=== PATIENT | male | born 1965 | race Caucasian/White ===

== ENCOUNTER 2017-05-18 18:45 | Inpatient (IN) | payer MEDICARE, OTHER ==
[~2017-05-18] VITALS: Ht 172.7 cm; Wt 83.9 kg
[~2017-05-18 18:45] MED LIST: BLOO-367 IN; CALC-343 PO; CLOZ100T32 PO; DIVA500T2 PO; DOCU-170 PO; GLIP5TAB13 PO; INSU100V26 IJ; LISI5TAB45 PO; LORA1TAB82 PO; MELA5TAB PO
--- NOTE | 2017-05-18 18:50 | NUR ---
BB PA FROM SNF STRIKING OUT STAFF AGGRESIVE BEHAVIOR X1 DAY DIRECTOR OF CLAIMS REQUESTING PSYCH EVAL, NAD NOTED, VSS, PT PUT ON HOSPITAL GOWN AND MONITOR, WAITING FOR MD SHRUTHI
[2017-05-18 20:14] LABS: BASOPHILS % (AUTO) 0.4 % (0.0-2.0); EOSINOPHILS # (AUTO) 0.1 /CMM (0.0-0.7); EOSINOPHILS % (AUTO) 0.7 % (0.0-6.0); HEMATOCRIT 37 % (39-51); HEMOGLOBIN 12.9 g/dL (13.5-17.5); LYMPHOCYTES # (AUTO) 1.7 /CMM (0.8-4.8); LYMPHOCYTES % (AUTO) 13.5 % (20.0-44.0); MEAN CORPUSCULAR HEMOGLOBIN 32 PG (26.0-33.0); MEAN CORPUSCULAR HGB CONC 35 g/dl (31.0-36.0); MEAN CORPUSCULAR VOLUME 93 fL (80-96); MONOCYTES # (AUTO) 1.5 /CMM (0.1-1.30); MONOCYTES % (AUTO) 12.2 % (2.0-12.0); NEUTROPHILS # (AUTO) 9.1 /CMM (1.8-8.9); NEUTROPHILS % (AUTO) 73.2 % (43.0-81.0); PLATELET COUNT (AUTO) 194 /CMM (150-450); RDW COEFFICIENT OF VARIATION 13.4 (11.5-15.0); RED BLOOD CELL COUNT(AUTO) 3.98 MIL/uL (4.5-6.0); WHITE BLOOD COUNT (AUTO) 12.4 K/uL (4.3-11.0)
[2017-05-18 20:24] LABS: CALCIUM, SERUM 8.9 mg/dL (8.5-10.1); CARBON DIOXIDE 27 mmol/L (21-32); CHLORIDE 97 mmol/L (98-107); CREATININE 0.7 mg/dL (0.6-1.3); GLUCOSE 102 mg/dL (74-106); POTASSIUM 3.9 mmol/L (3.5-5.1); SODIUM SERUM 131 mmol/L (136-145); UREA NITROGEN, BLOOD 10 mg/dL (7-18)
[2017-05-18 20:29] LABS: ALANINE AMINOTRANSFERASE 22 U/L (12-78); ALBUMIN 3.8 g/dL (3.4-5.0); ALCOHOL, BLOOD < 3 mg/dL (0-0); ALKALINE PHOSPHATASE 57 U/L (46-116); ASPARTATE AMINOTRANSFERASE 19 U/L (15-37); BILIRUBIN,DIRECT 0.1 mg/dL (0.0-0.2); BILIRUBIN,TOTAL 0.4 mg/dL (0.2-1.0); TOTAL PROTEIN, SERUM 6.8 g/dL (6.4-8.2)
[2017-05-18 20:36] LABS: SALICYLATE 0.7 mg/dL (2.8-20.0)
[2017-05-18 20:37] LABS: ACETAMINOPHEN 0 ug/ml (10-30)
--- NOTE | 2017-05-18 22:05 | NUR ---
CALLED ART FOR PSYCH EVAL
--- NOTE | 2017-05-18 22:08 | NUR ---
URINE SENT TO LAB
--- NOTE | 2017-05-18 22:09 | NUR ---
Patient is resting comfortably in bed with eyes closed. Easily aroused. VSS
[2017-05-18 23:13] LABS: APPEARANCE,URINE CLEAR (CLEAR); BILIRUBIN,URINE NEGATIVE (NEGATIVE); BLOOD, URINE NEGATIVE Ery/uL (NEGATIVE); COLOR,URINE YELLOW (YELLOW); KETONES,URINE NEGATIVE (NEGATIVE); LEUKOCYTE ESTERASE ,URINE NEGATIVE (NEGATIVE); NITRITE, URINE NEGATIVE (NEGATIVE); PROTEIN,URINE NEGATIVE (NEGATIVE); UGLUCOSE NEGATIVE (NEGATIVE)
--- NOTE | 2017-05-18 23:20 | NUR ---
Patient is resting comfortably in bed with eyes closed. Easily aroused. VSS
--- NOTE | 2017-05-18 23:23 | NUR ---
ART AT BS
--- NOTE | 2017-05-19 01:08 | NUR ---
REPORT GIVEN TO MAXINE WILKS FOR CONTINUATION OF CARE.
--- NOTE | 2017-05-19 01:20 | NUR ---
PT TRANSFERED TO [facility] VIA WHEELCHAIR,
[2017-05-19] MEDS ORDERED: ATEN50TA PO (01:36)
[2017-05-19] MEDS ORDERED: LACT10SO PO (01:36)
[2017-05-19] MEDS ORDERED: TRAZ-147 PO (01:36)
[2017-05-19] MEDS ORDERED: FOLI1TAB16 PO (01:36)
[2017-05-19] MEDS ORDERED: TRAZ-144 PO (01:36)
[2017-05-19] MEDS ORDERED: QUET300T2 PO (01:36)
[2017-05-19] MEDS ORDERED: ATOR10TA PO (01:36)
[2017-05-19] MEDS ORDERED: BENA20TA2 PO (01:36)
[2017-05-19] MEDS ORDERED: DIVA500T2 PO (01:36)
[2017-05-19 01:45] VITALS: BP 130/75
--- NOTE | 2017-05-19 01:45 | NUR ---
GPS EQUIPMENT ASSOCIATE NOTES ADMITTED THIS 51 YEAR OLD MALE ON 5150 HOLD FOR GRAVE DISABILITY. PER HOLD, PATIENT WAS AGGRESSIVE AND WAS STRIKING OUT AT STAFF AT THE CARE HOME WHERE HE CAME FROM. UPON FACE TO FACE PATIENT WAS IRRITABLE, YELLING AND BANGING ON THE BED WHEN ASSISTED WITH CARES. VITAL SIGNS CHECKED AND RECORDED. AFEBRILE. ASSESSMENT OF BODY SYSTEMS COMPLETED. SKIN AND BODY CHECK DONE. A BUMP WAS NOTED ON PATIENTS BACK WHICH HAD A SCAB AND A BLISTER AND WAS REDDENED. WOUND CONSULT REQUESTED. SCRATCHES WERE ALSO NOTED ON BILATERAL LOWER EXTREMITIES. PATIENT AMBULATES WITH ASSIST. PATIENTS BELONGINGS CHECKED FOR CONTRABAND ITEMS. NONE FOUND WITH PATIENT. PATIENT ADMITTED UNDER THE CARE OF DR. PRICE FOR PSYCH AND DR. FOREST MARTINEZ FOR MEDICAL. WILL ENDORSE TO DAY SHIFT. WILL MONITOR PATIENT Q 15 MINS FOR SAFETY AND BEHAVIORS.
[2017-05-19] MEDS ORDERED: ACETAMINOPHEN 325 MG TABLET PO PRN (02:00)
[2017-05-19] MEDS ORDERED: MAG HYDROX/AL HYDROX/SIMETH 30 ML UDC PO PRN (02:00)
[2017-05-19] MEDS ORDERED: MAGNESIUM HYDROXIDE 30 ML UDC PO PRN (02:00)
[2017-05-19 08:14] VITALS: BP 127/75
--- NOTE | 2017-05-19 09:19 | NUR ---
[id number]: NOTIFIED DR. WHITLOCK ABOUT PT LAB RESULTS ON : WBC= 12.4, RBC= 3.98, HGB= 12.9, HCT=37, LYMPH %= 13.5, MONO%= 12.2, NEUT #= 9.1, MONO#= 1.5, BG=284, CHLORIDE= 97, UR SPECIIFC GRAVITY= <1.005, URINE UROBILINOGEN= 1.0. REMINDED DR. WHITLOCK ABOUT MEDICATION RECONCILIATION
[2017-05-19] MEDS ORDERED: LACTULOSE 10 G/15 ML UDC (PYXIS) PO PRN (09:30)
[2017-05-19] MEDS: ATENOLOL 50 MG TABLET PO SCH (09:35)
[2017-05-19] MEDS: DIVALPROEX SODIUM 500 MG TABLET.DR PO SCH ×2 (11:03→16:45)
[2017-05-19] MEDS: BENAZEPRIL HCL 5 MG TABLET PO SCH (11:03)
[2017-05-19] MEDS: FOLIC ACID 1 MG TABLET PO SCH (11:05)
--- NOTE | 2017-05-19 11:50 | NUR ---
GPS/RN PT IS AGITATED, SPITS ON THE STUFF MEMBERS, HITS FURNITURE REPEATEDLY. TRIED THE ALTERNATIVE MEASURES BUT PT REMAINS NOT REDIRECTABLE. DR REBOLLEDO ASSESSED THE PT AND ORDERED ZYPREXA 10MG IM ONCE
[2017-05-19] MEDS ORDERED: OLANZAPINE 10 MG VIAL IM ONE (12:00)
--- NOTE | 2017-05-19 13:03 | NUR ---
GPS/RN DR REBOLLEDO ORDERED SITTER 1:1 FOR SAFETY( PT AGITATED, HITTING THE SIDE RAILS, FURNITURE, SCREAMS, NOT REDIRECTABLE)
--- NOTE | 2017-05-19 13:15 | NUR ---
[id number]: GAVE ATIVAN 1 MG PO DUE TO INCREASED ANXIETY UPON PT REQUEST AND WILL CONTINUE TO MONITOR FOR EFFECTIVENESS OF MEDICATION
[2017-05-19] MEDS ORDERED: LORAZEPAM 1 MG TABLET PO PRN (13:30)
[2017-05-19] MEDS: LORAZEPAM 1 MG TABLET PO ONE (13:30)
[2017-05-19] MEDS ORDERED: ZIPRASIDONE MESYLATE 20 MG/VIAL VIAL IM ONE (14:00)
--- NOTE | 2017-05-19 14:02 | NUR ---
GPS/RN PT IS AGITATED, SCREAMS, TRIED TO HIT STUFF MEMBERS, BANGS ON THE WALL, FURNITURE. GEODON 10MG IM ORDERED BY DR REBOLLEDO.
[2017-05-19 16:00] VITALS: BP_SYST 131; BP_SYST 137; BP_DIAS 67; BP_DIAS 84
--- NOTE | 2017-05-19 16:42 | NUR ---
[id number]: DUPLICATE ORDER OF ATIVAN 1 MG PO ONCE, NOT ADMINISTER
[2017-05-19] MEDS: ATORVASTATIN 10 MG TABLET PO SCH (21:22)
[2017-05-19] MEDS: OLANZAPINE 5 MG/TAB.RAPDIS PO SCH (21:23)
--- NOTE | 2017-05-20 01:38 | NUR ---
GPS RN: PATIENT IN BED, ASLEEP, QUIET THIS TIME OF ROUNDS. 1:1 SITTER IN CLOSE PROXIMITY. WILL CONTINUE TO MONITOR PATIENT FOR MOOD, SAFETY AND BEHAVIOR.
[2017-05-20] MEDS: LORAZEPAM 0.5 MG TABLET PO PRN ×2 (05:19→16:51)
--- NOTE | 2017-05-20 05:40 | NUR ---
GPS RN: PATIENT IN THE ROOM, AWAKE, STARTING TO SCREAM AND YELL AT THIS TIME. ATIVAN 0.5 MG GIVEN ORALLY A PRN ORDER AT 0519 AM. 1:1 SITTER IN CLOSE PROXIMITY FOR PATIENT'S SAFETY. WILL CONTINUE TO MONITOR FOR PATIENT'S SAFETY AND MOOD.
[2017-05-20] MEDS: OLANZAPINE 5 MG/TAB.RAPDIS PO SCH ×2 (08:06→21:16)
[2017-05-20] MEDS: DIVALPROEX SODIUM 500 MG TABLET.DR PO SCH ×2 (08:06→16:51)
[2017-05-20] MEDS: BENAZEPRIL HCL 5 MG TABLET PO SCH (08:07)
[2017-05-20] MEDS: FOLIC ACID 1 MG TABLET PO SCH (08:07)
[2017-05-20] MEDS: ATENOLOL 50 MG TABLET PO SCH (08:07)
[2017-05-20 08:13] VITALS: BP 111/63
[2017-05-20 10:44] LABS: BASOPHILS % (AUTO) 0.2 % (0.0-2.0); EOSINOPHILS % (AUTO) 0.4 % (0.0-6.0); HEMATOCRIT 45 % (39-51); HEMOGLOBIN 14.9 g/dL (13.5-17.5); LYMPHOCYTES # (AUTO) 1.6 /CMM (0.8-4.8); MEAN CORPUSCULAR HEMOGLOBIN 31 PG (26.0-33.0); MEAN CORPUSCULAR HGB CONC 33 g/dl (31.0-36.0); MEAN CORPUSCULAR VOLUME 95 fL (80-96); MONOCYTES # (AUTO) 1.1 /CMM (0.1-1.30); MONOCYTES % (AUTO) 10.8 % (2.0-12.0); NEUTROPHILS # (AUTO) 7.7 /CMM (1.8-8.9); NEUTROPHILS % (AUTO) 73.6 % (43.0-81.0); PLATELET COUNT (AUTO) 267 /CMM (150-450); RDW COEFFICIENT OF VARIATION 14.6 (11.5-15.0); RED BLOOD CELL COUNT(AUTO) 4.75 MIL/uL (4.5-6.0); WHITE BLOOD COUNT (AUTO) 10.4 K/uL (4.3-11.0)
[2017-05-20 10:52] LABS: CHOLESTEROL 105 mg/dL (<200); HDL CHOLESTEROL 40 mg/dL (40-60); LDL 47 mg/dL (0-99); TRIGLYCERIDES 156 mg/dL (30-150)
[2017-05-20 10:54] LABS: BILIRUBIN,TOTAL 0.4 mg/dL (0.2-1.0); CALCIUM, SERUM 9.7 mg/dL (8.5-10.1); CREATININE 0.9 mg/dL (0.6-1.3); POTASSIUM 4.4 mmol/L (3.5-5.1); TOTAL PROTEIN, SERUM 7.8 g/dL (6.4-8.2)
[2017-05-20 15:49] VITALS: BP 152/77
[2017-05-20] MEDS ORDERED: LORAZEPAM 1 MG TABLET PO STA (18:07)
[2017-05-20 20:00] VITALS: BP 115/61
[2017-05-20] MEDS: ATORVASTATIN 10 MG TABLET PO SCH (21:16)
[2017-05-21] MEDS: FOLIC ACID 1 MG TABLET PO SCH (09:30)
[2017-05-21] MEDS: LORAZEPAM 0.5 MG TABLET PO PRN (09:31)
[2017-05-21] MEDS: OLANZAPINE 5 MG/TAB.RAPDIS PO SCH ×2 (09:31→21:26)
--- NOTE | 2017-05-21 09:31 | NUR ---
RN NOTE :MEDICATED WITH ATIVAN 1MG FOR ANXIETY .
[2017-05-21] MEDS: DIVALPROEX SODIUM 500 MG TABLET.DR PO SCH ×2 (09:32→17:28)
[2017-05-21] MEDS: ATENOLOL 50 MG TABLET PO SCH (09:37)
[2017-05-21] MEDS: BENAZEPRIL HCL 5 MG TABLET PO SCH (09:40)
--- NOTE | 2017-05-21 11:50 | NUR ---
WOUND CARE CONSULT: PT PRESENTS WITH DRY ABRASION/SCAB TO BACK, PRESENT ON ADMISSION. CURRENT SHARRON SCORE IS 17. ALL SKIN PROTECTION MEASURES IN PLACE AND DISCUSSED WITH NURSING STAFF. WILL SEE PRN. WANG IN AGREEMENT WITH PLAN OF CARE. Addendum: 05/21/17 at 1151 by KEL FRANCIS WNDNU Amended: Links added.
[2017-05-21] MEDS ORDERED: Z GUARD REMEDY 2 OZ OINT TP PRN (12:00)
[2017-05-21] MEDS: Z GUARD REMEDY 2 OZ OINT TP SCH (12:00)
[2017-05-21] MEDS ORDERED: OLANZAPINE 5 MG/TAB.RAPDIS PO PRN (12:00)
[2017-05-21 15:36] VITALS: BP 108/56
--- NOTE | 2017-05-21 16:20 | NUR ---
Initial Discharge Plan: Pt resides at [facility], [address] [facility], [address]; and fax # . SW contacted facility at 4:13 pm on 05/21/17 with no answer. Unable to leave message. SW will follow up. SW will help form a safe and proper discharge.
[2017-05-21 20:34] VITALS: BP 113/61
[2017-05-21] MEDS: ATORVASTATIN 10 MG TABLET PO SCH (21:25)
[2017-05-22 06:41] LABS: BASOPHILS % (AUTO) 0.4 % (0.0-2.0); EOSINOPHILS # (AUTO) 0.3 /CMM (0.0-0.7); EOSINOPHILS % (AUTO) 2.9 % (0.0-6.0); HEMATOCRIT 42 % (39-51); HEMOGLOBIN 13.9 g/dL (13.5-17.5); LYMPHOCYTES # (AUTO) 2.7 /CMM (0.8-4.8); MEAN CORPUSCULAR HEMOGLOBIN 32 PG (26.0-33.0); MEAN CORPUSCULAR HGB CONC 34 g/dl (31.0-36.0); MEAN CORPUSCULAR VOLUME 95 fL (80-96); MONOCYTES # (AUTO) 1.3 /CMM (0.1-1.30); MONOCYTES % (AUTO) 12.1 % (2.0-12.0); NEUTROPHILS # (AUTO) 6.8 /CMM (1.8-8.9); NEUTROPHILS % (AUTO) 60.6 % (43.0-81.0); PLATELET COUNT (AUTO) 216 /CMM (150-450); RDW COEFFICIENT OF VARIATION 14.1 (11.5-15.0); RED BLOOD CELL COUNT(AUTO) 4.36 MIL/uL (4.5-6.0); WHITE BLOOD COUNT (AUTO) 11.1 K/uL (4.3-11.0)
[2017-05-22 07:07] LABS: ALBUMIN 3.4 g/dL (3.4-5.0); BILIRUBIN,TOTAL 0.4 mg/dL (0.2-1.0); CREATININE 0.8 mg/dL (0.6-1.3); POTASSIUM 4.1 mmol/L (3.5-5.1)
[2017-05-22 08:00] VITALS: BP 118/65
[2017-05-22] MEDS: ATENOLOL 50 MG TABLET PO SCH (08:52)
[2017-05-22] MEDS: BENAZEPRIL HCL 5 MG TABLET PO SCH (08:52)
[2017-05-22] MEDS: FOLIC ACID 1 MG TABLET PO SCH (08:52)
[2017-05-22] MEDS: OLANZAPINE 5 MG/TAB.RAPDIS PO SCH ×2 (08:52→21:37)
[2017-05-22] MEDS: LORAZEPAM 0.5 MG TABLET PO PRN (08:53)
--- NOTE | 2017-05-22 08:53 | NUR ---
RN NOTE :MEDICATED WITH ATIVAN 1MG FOR ANXIETY .
[2017-05-22] MEDS: DIVALPROEX SODIUM 500 MG TABLET.DR PO SCH ×2 (08:59→17:37)
[2017-05-22] MEDS: Z GUARD REMEDY 2 OZ OINT TP SCH (09:19)
[2017-05-22 16:32] VITALS: BP 143/87
--- NOTE | 2017-05-22 19:30 | NUR ---
GPS RN NOTE, RECEIVED PATIENT AWAKE AND IN BED NO S/S OR COMPLAINTS OF PAIN AT THIS TIME. PATIENT IS DISPLAYING NO S/S OF APPARENT DISTRESS AT THIS TIME. PATIENT BREATHING IS UNLABORED WITH EQUAL RISE AND FALL OF THE CHEST. PATIENT HAS A ONE TO ONE SITTER FOR SAFETY. PATIENT IS ALERT AND ORIENTED X2-3 ON ROOM AIR WITH A SPOO2 96 %. PATIENT IS MED COMPLIANT, UNPREDICTABLE AT TIMES, ANXIOUS AT TIMES, AGGRESSIVE AT TIMES, DISORGANIZED, AND NEEDS REORIENTATION. PATIENT DENIES SUICIDE IDEATIONS AND HOMICIDAL IDEATIONS AT THIS TIME. PATIENT ASSISTED WITH TURNING AND REPOSITIONING Q2HR AND PRN FOR COMFORT AND CIRCULATION. PATIENT HAS NO NEEDS AT THIS TIME. PATIENT EDUCATED ON THE USE OF THE CALL TEJADA. PATIENT BED SIDE RAILS UP X 2 FOR SAFETY. PATIENT BED IS LOCKED AND LOW WILL CONTINUE TO MONITOR AND MAINTAIN SAFETY Q15 MIN WITH THE HELP OF STAFF.
[2017-05-22 20:15] VITALS: BP 132/79
[2017-05-22] MEDS: TEMAZEPAM 7.5 MG CAPSULE PO PRN (21:37)
[2017-05-22] MEDS: ATORVASTATIN 10 MG TABLET PO SCH (21:37)
--- NOTE | 2017-05-22 21:37 | NUR ---
GPS RN NOTE, PATIENT HAS A COMPLAINT OF NOT BEING ABLE TO SLEEP AND IS REQUESTING RESTORIL AT THIS TIME. PATIENT VITAL SIGNS ARE STABLE. GAVE RESTORIL 7.5MG PO HS ORDERED. WILL REASSESS FOR INSOMNIA AND I WILL CONTINUE TO MONITOR THIS PATIENT WITH THE HELP OF STAFF.
[2017-05-23] MEDS: DIVALPROEX SODIUM 500 MG TABLET.DR PO SCH ×2 (08:18→16:19)
[2017-05-23] MEDS: FOLIC ACID 1 MG TABLET PO SCH (08:18)
[2017-05-23] MEDS: OLANZAPINE 5 MG/TAB.RAPDIS PO SCH ×2 (08:19→21:21)
[2017-05-23] MEDS: ATENOLOL 50 MG TABLET PO SCH (08:21)
[2017-05-23] MEDS: BENAZEPRIL HCL 5 MG TABLET PO SCH (08:21)
[2017-05-23] MEDS: Z GUARD REMEDY 2 OZ OINT TP SCH (08:22)
[2017-05-23] MEDS: LORAZEPAM 0.5 MG TABLET PO PRN (09:14)
[2017-05-23 15:38] VITALS: BP 100/62
[2017-05-23 20:00] VITALS: BP 151/86
[2017-05-23] MEDS: ATORVASTATIN 10 MG TABLET PO SCH (22:00)
[2017-05-23] MEDS: TEMAZEPAM 7.5 MG CAPSULE PO PRN (22:01)
[2017-05-24 07:56] VITALS: BP 108/58
[2017-05-24] MEDS: BENAZEPRIL HCL 5 MG TABLET PO SCH (08:34)
[2017-05-24] MEDS: DIVALPROEX SODIUM 500 MG TABLET.DR PO SCH (08:34)
[2017-05-24] MEDS: OLANZAPINE 5 MG/TAB.RAPDIS PO SCH ×2 (08:34→21:12)
[2017-05-24] MEDS: FOLIC ACID 1 MG TABLET PO SCH (08:34)
[2017-05-24] MEDS: ATENOLOL 50 MG TABLET PO SCH (08:35)
[2017-05-24] MEDS: Z GUARD REMEDY 2 OZ OINT TP SCH (09:04)
[2017-05-24 16:00] VITALS: BP 148/93
[2017-05-24] MEDS: DIVALPROEX SODIUM 125 MG CAP.SPRINK PO SCH (16:40)
[2017-05-24] MEDS: BOOST PLUS FOOD-VANILLA 237 ML BOX PO SCH (17:42)
[2017-05-24 20:04] VITALS: BP 153/77
[2017-05-24] MEDS: ATORVASTATIN 10 MG TABLET PO SCH (21:12)
[2017-05-25] MEDS: TEMAZEPAM 7.5 MG CAPSULE PO PRN ×2 (01:32→21:49)
--- NOTE | 2017-05-25 07:30 | NUR ---
GPS OPENING NOTES RECEIVED PATIENT IN STABLE CONDITION. PATIENT IS ALERT AND RESTING IN BED. BEDSIDE RAILS ARE UP X2. BED IS LOCKED AND LOWERED. WILL CONTINUE TO MONITOR.
[2017-05-25 08:00] VITALS: BP 147/77
[2017-05-25] MEDS: BOOST PLUS FOOD-VANILLA 237 ML BOX PO SCH ×2 (08:02→16:32)
[2017-05-25] MEDS: BENAZEPRIL HCL 5 MG TABLET PO SCH (08:03)
[2017-05-25] MEDS: DIVALPROEX SODIUM 125 MG CAP.SPRINK PO SCH ×2 (08:03→16:31)
[2017-05-25] MEDS: OLANZAPINE 5 MG/TAB.RAPDIS PO SCH ×2 (08:03→21:49)
[2017-05-25] MEDS: ATENOLOL 50 MG TABLET PO SCH (08:04)
[2017-05-25] MEDS: FOLIC ACID 1 MG TABLET PO SCH (08:04)
[2017-05-25] MEDS: Z GUARD REMEDY 2 OZ OINT TP SCH (08:04)
[2017-05-25 16:00] VITALS: BP 109/63
--- NOTE | 2017-05-25 18:29 | NUR ---
GPS RN CLOSING NOTES PATIENT IS IN STABLE CONDITION. IN NO APPARENT DISTRESS. ALL NEEDS WERE MET. PATIENT IS ALERT AND RELAXING IN BED. BEDSIDE RAILS ARE UP X2. BED IS LOCKED AND LOWERED. WILL ENDORSE CARE TO CUSTOMER SERVICES SUPERVISOR NURSE FOR ALEXIS.
[2017-05-25] MEDS: ATORVASTATIN 10 MG TABLET PO SCH (21:49)
[2017-05-25] MEDS ORDERED: DIVALPROEX SODIUM 125 MG CAP.SPRINK PO ONE (22:00)
[2017-05-25] MEDS ORDERED: DIVALPROEX SODIUM 500 MG TABLET.DR PO ONE (22:14)
[2017-05-26 08:19] VITALS: BP 100/60
[2017-05-26] MEDS: DIVALPROEX SODIUM 125 MG CAP.SPRINK PO SCH ×2 (08:31→21:08)
[2017-05-26] MEDS: OLANZAPINE 5 MG/TAB.RAPDIS PO SCH ×2 (08:31→21:08)
[2017-05-26] MEDS: FOLIC ACID 1 MG TABLET PO SCH (08:31)
[2017-05-26] MEDS: BENAZEPRIL HCL 5 MG TABLET PO SCH (08:32)
[2017-05-26] MEDS: ATENOLOL 25 MG TABLET PO SCH (09:00)
[2017-05-26] MEDS: Z GUARD REMEDY 2 OZ OINT TP SCH (10:42)
[2017-05-26] MEDS: BOOST PLUS FOOD-VANILLA 237 ML BOX PO SCH ×2 (11:59→16:20)
[2017-05-26 16:16] VITALS: BP 130/71
[2017-05-26 20:30] VITALS: BP 123/76
[2017-05-26] MEDS: ATORVASTATIN 10 MG TABLET PO SCH (21:08)
[2017-05-27 08:00] VITALS: BP 140/85
[2017-05-27] MEDS: OLANZAPINE 5 MG/TAB.RAPDIS PO SCH ×2 (08:11→21:31)
[2017-05-27] MEDS: BENAZEPRIL HCL 5 MG TABLET PO SCH (08:12)
[2017-05-27] MEDS: DIVALPROEX SODIUM 125 MG CAP.SPRINK PO SCH ×2 (08:13→21:32)
[2017-05-27] MEDS: BOOST PLUS FOOD-VANILLA 237 ML BOX PO SCH ×2 (08:14→16:31)
[2017-05-27] MEDS: Z GUARD REMEDY 2 OZ OINT TP SCH (08:16)
[2017-05-27] MEDS: FOLIC ACID 1 MG TABLET PO SCH (08:18)
[2017-05-27] MEDS: ATENOLOL 25 MG TABLET PO SCH (08:19)
--- NOTE | 2017-05-27 10:30 | NUR ---
[id number]: NOTIFIED CIS COORDINATOR VESTA PINTO REGARDING HAVING REDNESS ON BACK AREA. NO NEW ORDERS GIVEN AT THIS TIME. PT IS STABLE FOR DISCHARGE.
[2017-05-27 16:00] VITALS: BP 114/53
[2017-05-27 20:04] VITALS: BP 141/90
[2017-05-27] MEDS: ATORVASTATIN 10 MG TABLET PO SCH (21:31)
--- NOTE | 2017-05-28 06:00 | NUR ---
GPS RN NOTE, PATIENT ASSISTED TO THE SHOWER BY JAROCHO ANSARI ONCE THEIR I WAS CALLED OVER AND OBSERVED A 4CM X 4CM X 0CM NEW REDNESS THAT DEVELOPED AFTER ADMISSION. PICTURE TAKEN AND UPDATED IN MEDICAL RECORD. PATIENT IS AFEBRILE WITH NO S/S OF PAIN. WILL ENDORSE TO AM SHIFT NURSE TO HAVE THE MORNING DOCTOR TO SEE THIS PATIENT'S NEW REDNESS. WILL CONTINUE TO MONITOR THIS PATIENT.
[2017-05-28 08:00] VITALS: BP 114/67
--- NOTE | 2017-05-28 09:03 | NUR ---
WOUND CARE CONSULT: PT CONTINUES TO PRESENT WITH DRY ABRASION TO UPPER LEFT BACK, PRESENT ON ADMISSION. PT NOW PRESENTS WITH RED RAISED BUMP TO RT SHOULDER AREA WHICH IS NOT DRAINING AND IS SOFT TO TOUCH, NONTENDER. DEFER TO MD. WILL SEE PRN.
[2017-05-28] MEDS: BOOST PLUS FOOD-VANILLA 237 ML BOX PO SCH ×2 (10:30→17:43)
[2017-05-28] MEDS: BENAZEPRIL HCL 5 MG TABLET PO SCH (10:31)
[2017-05-28] MEDS: DIVALPROEX SODIUM 125 MG CAP.SPRINK PO SCH ×2 (10:32→21:22)
[2017-05-28] MEDS: FOLIC ACID 1 MG TABLET PO SCH (10:32)
[2017-05-28] MEDS: OLANZAPINE 5 MG/TAB.RAPDIS PO SCH ×2 (10:32→21:23)
[2017-05-28] MEDS: ATENOLOL 25 MG TABLET PO SCH (10:33)
[2017-05-28] MEDS: Z GUARD REMEDY 2 OZ OINT TP SCH (10:33)
--- NOTE | 2017-05-28 10:34 | NUR ---
RN note Reassigned to LASHAUN Sorto's patients. Administering all due/passed due medication.
[2017-05-28] MEDS: LORAZEPAM 0.5 MG TABLET PO PRN (12:38)
--- NOTE | 2017-05-28 12:41 | NUR ---
Rn note Patient is agitated, inconsolable. Patient is screaming "i don't want to go to court". Patient reoriented and reassured. PRN anxiolytic administered as prescribed. Patient assisted to the bed. 1:1 sitter at the bedside. Will continue to assess/monitor.
--- NOTE | 2017-05-28 13:00 | NUR ---
[id number]: NOTIFIED RAILROAD PURCHASING AGENT VESTA PINTO ABOUT BACK AREA REDNESS AND NO NEW ORDERS GIVEN AT THIS TIME.
--- NOTE | 2017-05-28 13:34 | NUR ---
RN Note Patient is sleeping in bed comfortably. Easily awaken. Patient appears to be calm and relaxed. Sitter at the bedside. Patient in Bed, bed is locked, in lowest position, side rails up x3. Will continue to assess and monitor.
[2017-05-28 16:00] VITALS: BP 107/70
[2017-05-28 20:37] VITALS: BP 104/54
[2017-05-28] MEDS: ATORVASTATIN 10 MG TABLET PO SCH (21:23)
[2017-05-29] MEDS: TEMAZEPAM 7.5 MG CAPSULE PO PRN (01:57)
[2017-05-29 08:00] VITALS: BP 106/67
[2017-05-29] MEDS: OLANZAPINE 5 MG/TAB.RAPDIS PO SCH ×2 (08:15→21:13)
[2017-05-29] MEDS: DIVALPROEX SODIUM 125 MG CAP.SPRINK PO SCH ×2 (08:17→21:13)
[2017-05-29] MEDS: ATENOLOL 25 MG TABLET PO SCH (08:18)
[2017-05-29] MEDS: FOLIC ACID 1 MG TABLET PO SCH (08:18)
[2017-05-29] MEDS: BENAZEPRIL HCL 5 MG TABLET PO SCH (08:18)
[2017-05-29] MEDS: Z GUARD REMEDY 2 OZ OINT TP SCH (08:19)
[2017-05-29] MEDS: BOOST PLUS FOOD-VANILLA 237 ML BOX PO SCH ×2 (08:19→16:31)
--- NOTE | 2017-05-29 12:45 | NUR ---
LEONCIO contacted [place] [address], , for discharge planning purposes (pt is ready to be discharged). LEONCIO was informed that pt no longer had a bed available at the facility. LEONCIO will discuss pts case with Technical Developer, Cait Whitman. LEONCIO will follow up to ensure pt is properly discharged.
--- NOTE | 2017-05-29 19:30 | NUR ---
RN NOTE; RECEIVED PT IN BED LAYING DOWN COMFORTABLY. BREATHING EVENLY. ON 1:1 OBSERVATION FOR SAFETY AND FALL RISK. NO BEHAVIORAL ISSUES NOTED AT THIS TIME. WILL CONT TO MONITOR .
[2017-05-29 20:00] VITALS: BP 130/76
[2017-05-29 20:35] VITALS: BP 130/76
[2017-05-29] MEDS: ATORVASTATIN 10 MG TABLET PO SCH (21:13)
--- NOTE | 2017-05-30 06:32 | NUR ---
RN NOTE; PT IN HIS ROOM SLEEPING. NO ACUTE EVENT DURING THE THE NIGHT. NO COMBATIVE BEHAVIOR. REFUSED BLOOD DRAW FOR VALPROIC ACID LEVEL. ON ONGOING OBSERVATION AND 1:1 SITTER FOR SAFETY AND FALL RISK. MEDICATED ORDERED. NEEDS ATTENDED . WILL CONT TO MONITOR AND WILL ENDORSE TO AM SHIFT FOR ALEXIS .
[2017-05-30] MEDS: FOLIC ACID 1 MG TABLET PO SCH (08:33)
[2017-05-30] MEDS: OLANZAPINE 5 MG/TAB.RAPDIS PO SCH ×2 (08:34→21:20)
[2017-05-30] MEDS: ATENOLOL 25 MG TABLET PO SCH (08:34)
[2017-05-30] MEDS: BENAZEPRIL HCL 5 MG TABLET PO SCH (08:34)
[2017-05-30] MEDS: BOOST PLUS FOOD-VANILLA 237 ML BOX PO SCH ×2 (08:35→17:10)
[2017-05-30] MEDS: Z GUARD REMEDY 2 OZ OINT TP SCH (08:37)
[2017-05-30 08:48] VITALS: BP 122/74
[2017-05-30] MEDS: DIVALPROEX SODIUM 125 MG CAP.SPRINK PO SCH ×2 (08:57→21:20)
--- NOTE | 2017-05-30 14:44 | NUR ---
[id number]: GAVE MILK OF MAGNESIA 30 ML PO DUE TO CONSTIPATION UPON PT REQUEST AND WILL CONTINUE TO MONITOR FOR EFFECTIVENESS OF MEDICATION
--- NOTE | 2017-05-30 14:49 | NUR ---
RECEIVED PT. WITH 1:1 SITTER. PT. IS CALM AND COOPERATIVE AND FOLLOWS DIRECTIONS. DR. TREJO ORDERED TO D/C 1:1.
[2017-05-30 16:00] VITALS: BP 107/57
[2017-05-30] MEDS ORDERED: SULFAMETH/TRIMETH 800/160 MG 1 UDTAB TABLET PO SCH (17:00)
[2017-05-30] MEDS: CEPHALEXIN MONOHYDRATE 250 MG CAPSULE PO SCH (17:12)
[2017-05-30 20:00] VITALS: BP 114/67
[2017-05-30] MEDS: SULFAMETH/TRIMETH 800/160 MG 1 UDTAB TABLET PO SCH (21:19)
[2017-05-30] MEDS: ATORVASTATIN 10 MG TABLET PO SCH (21:21)
[2017-05-31] MEDS: CEPHALEXIN MONOHYDRATE 250 MG CAPSULE PO SCH ×4 (00:01→17:01)
[2017-05-31] MEDS: TEMAZEPAM 7.5 MG CAPSULE PO PRN ×2 (00:53→22:10)
[2017-05-31] MEDS: BOOST PLUS FOOD-VANILLA 237 ML BOX PO SCH ×2 (08:09→16:51)
--- NOTE | 2017-05-31 08:20 | NUR ---
WOUND CARE CONSULT WOUND CARE CONSULT RECEIVED FOR RE-EVALUATION OF REDNESS WITH RAISED AREA TO THE BACK. PLASTIC SURGERY TEAM ON CASE AND PLAN IS FOR OR THIS COMING SATURDAY. SHEET METAL LAYOUT MECHANIC WILL DEFER TREATMENT PLAN TO SURGICAL TEAM AT THIS TIME.
[2017-05-31 08:22] VITALS: BP 109/55
[2017-05-31] MEDS: BENAZEPRIL HCL 5 MG TABLET PO SCH (09:00)
[2017-05-31] MEDS: ATENOLOL 25 MG TABLET PO SCH (09:00)
[2017-05-31] MEDS: FOLIC ACID 1 MG TABLET PO SCH (09:32)
[2017-05-31] MEDS: OLANZAPINE 5 MG/TAB.RAPDIS PO SCH ×2 (09:32→21:03)
[2017-05-31] MEDS: SULFAMETH/TRIMETH 800/160 MG 1 UDTAB TABLET PO SCH ×2 (09:32→21:02)
[2017-05-31] MEDS: Z GUARD REMEDY 2 OZ OINT TP SCH (09:34)
--- NOTE | 2017-05-31 09:44 | NUR ---
05/29/2017 LEONCIO spoke to BETZY from [facility]; on 05/29/17 in order to inquire if inquiry for the pt had been received (LEONCIO was unable to obtain a clear answer from [facility] staff). LEONCIO explained that the pt had come from their facility and was ready for discharge (LEONCIO made attempts to fax inquiries to other facilities as well, with no success). BETZY informed LEONCIO that he would follow up with [facility] staff and get back to LEONCIO. LEONCIO will continue to follow up.
--- NOTE | 2017-05-31 09:48 | NUR ---
05/30/2017 LEONCIO received a call from BETZY from [facility] on 05/30/2017 stating that the safety inspector, Mrs. Pace along with Ms. Carpenter Barrel Inspector Tight would be coming to [facility] on this date to access the pt. in order to see if he was appropriate for their facility. Upon [facility] arrival LEONCIO walked them to pts room at which time they appeared to recognize the pt and stated, No this is Balaji Santos, we are here for Mauro Santos. LEONCIO informed them that V.B was their pt and he was ready for discharge, at which time they insisted on evaluating A.B. They also stated pt. V.B was too problematic, hitting staff and throwing things. Prior to leaving, LEONCIO attempted to have [facility] access V.B, however staff refused and stated they would discuss his case at the facility and contact LEONCIO later on today with a response. LEONCIO informed them that not accepting VB back to their facility was reportable. LEONCIO will continue to follow up.
--- NOTE | 2017-05-31 09:51 | NUR ---
LEONCIO contacted BETZY in order to access what had happened the previous day when [facility] came to access the wrong pt. Per BETZY he thought V.B and A.B were the same person. After speaking with [facility] staff, BETZY informed LEONCIO that V.B is a no return due to him continuously hitting staff and trying to hit other residents, he was throwing items at people and the staff could not manage him. LEONCIO attempted to contact a utilization supervisor from [facility] to see if a resolution could be achieved. LEONCIO was transferred to various personnel (some of the staff reported there was no male bed available and other staff reported pt as not appropriate for us). SW validated their concerns while making it clear that per attending psychiatrist pt was doing better. LEONCIO was finally transferred to, Matteo Foote, Wood Form Builder who informed LEONCIO that the facility could not accept the pt due to not having a male bed. LEONCIO informed Mr. Foote that they had until 06/03/2017 at 9am to come up with an official acceptance or that they would be reported to an ombudsman. LEONCIO will continue to follow up and ensure pt is properly discharged.
[2017-05-31] MEDS: DIVALPROEX SODIUM 125 MG CAP.SPRINK PO SCH ×2 (10:43→21:03)
[2017-05-31 16:14] VITALS: BP 106/60
[2017-05-31] MEDS: LACTOBACILLUS RHAMNOSUS GG 1 EACH CAP.SPRINK PO SCH (16:51)
[2017-05-31 20:00] VITALS: BP 118/65
[2017-05-31] MEDS: ATORVASTATIN 10 MG TABLET PO SCH (21:03)
[2017-06-01] MEDS: CEPHALEXIN MONOHYDRATE 250 MG CAPSULE PO SCH ×4 (00:17→17:21)
[2017-06-01] MEDS: BOOST PLUS FOOD-VANILLA 237 ML BOX PO SCH ×2 (08:11→16:44)
[2017-06-01] MEDS: FOLIC ACID 1 MG TABLET PO SCH (08:26)
[2017-06-01] MEDS: OLANZAPINE 5 MG/TAB.RAPDIS PO SCH ×2 (08:26→21:22)
[2017-06-01] MEDS: SULFAMETH/TRIMETH 800/160 MG 1 UDTAB TABLET PO SCH ×2 (08:26→21:22)
[2017-06-01] MEDS: LACTOBACILLUS RHAMNOSUS GG 1 EACH CAP.SPRINK PO SCH ×2 (08:26→16:44)
[2017-06-01 08:27] VITALS: BP 119/68
[2017-06-01] MEDS: DIVALPROEX SODIUM 125 MG CAP.SPRINK PO SCH ×2 (08:27→21:22)
[2017-06-01] MEDS: ATENOLOL 25 MG TABLET PO SCH (08:27)
[2017-06-01] MEDS: BENAZEPRIL HCL 5 MG TABLET PO SCH (08:27)
[2017-06-01] MEDS: Z GUARD REMEDY 2 OZ OINT TP SCH (08:28)
[2017-06-01 16:26] VITALS: BP 99/55
--- NOTE | 2017-06-01 17:55 | NUR ---
GPS/RN-NOTES PATIENT AWAKE,ALERT LAYING IN HIS BED CALM AND COOPERATIVE AT THIS TIME,NO ACUTE DISTRESS NOTED. ENDORSED TO INCOMING NURSE FOR CONTINUITY OF CARE.
[2017-06-01 20:00] VITALS: BP 119/71
[2017-06-01] MEDS: ATORVASTATIN 10 MG TABLET PO SCH (21:23)
[2017-06-01] MEDS: TEMAZEPAM 7.5 MG CAPSULE PO PRN (21:23)
[2017-06-02] MEDS: CEPHALEXIN MONOHYDRATE 250 MG CAPSULE PO SCH ×4 (00:12→17:32)
[2017-06-02 08:00] VITALS: BP 108/60
[2017-06-02] MEDS: DIVALPROEX SODIUM 125 MG CAP.SPRINK PO SCH ×2 (08:25→21:49)
[2017-06-02] MEDS: OLANZAPINE 5 MG/TAB.RAPDIS PO SCH ×2 (08:26→21:41)
[2017-06-02] MEDS: FOLIC ACID 1 MG TABLET PO SCH (08:26)
[2017-06-02] MEDS: SULFAMETH/TRIMETH 800/160 MG 1 UDTAB TABLET PO SCH ×2 (08:26→21:41)
[2017-06-02] MEDS: LACTOBACILLUS RHAMNOSUS GG 1 EACH CAP.SPRINK PO SCH ×2 (08:26→17:25)
[2017-06-02] MEDS: BENAZEPRIL HCL 5 MG TABLET PO SCH (08:27)
[2017-06-02] MEDS: ATENOLOL 25 MG TABLET PO SCH (08:28)
[2017-06-02] MEDS: Z GUARD REMEDY 2 OZ OINT TP SCH (08:29)
[2017-06-02] MEDS: BOOST PLUS FOOD-VANILLA 237 ML BOX PO SCH ×2 (08:31→17:27)
[2017-06-02 15:42] VITALS: BP 111/60
[2017-06-02 20:20] VITALS: BP 142/72
[2017-06-02] MEDS: ATORVASTATIN 10 MG TABLET PO SCH (21:41)
[2017-06-03] MEDS: CEPHALEXIN MONOHYDRATE 250 MG CAPSULE PO SCH ×2 (05:31)
[2017-06-03] MEDS: LORAZEPAM 0.5 MG TABLET PO PRN (07:07)
[2017-06-03 07:42] LABS: BASOPHILS % (AUTO) 0.4 % (0.0-2.0); EOSINOPHILS # (AUTO) 0.2 /CMM (0.0-0.7); EOSINOPHILS % (AUTO) 1.6 % (0.0-6.0); HEMATOCRIT 44 % (39-51); HEMOGLOBIN 14.7 g/dL (13.5-17.5); LYMPHOCYTES # (AUTO) 3.2 /CMM (0.8-4.8); LYMPHOCYTES % (AUTO) 26.1 % (20.0-44.0); MEAN CORPUSCULAR HEMOGLOBIN 32 PG (26.0-33.0); MEAN CORPUSCULAR HGB CONC 33 g/dl (31.0-36.0); MEAN CORPUSCULAR VOLUME 95 fL (80-96); MONOCYTES # (AUTO) 1.4 /CMM (0.1-1.30); MONOCYTES % (AUTO) 11.5 % (2.0-12.0); NEUTROPHILS # (AUTO) 7.5 /CMM (1.8-8.9); NEUTROPHILS % (AUTO) 60.4 % (43.0-81.0); PLATELET COUNT (AUTO) 291 /CMM (150-450); RDW COEFFICIENT OF VARIATION 13.4 (11.5-15.0); RED BLOOD CELL COUNT(AUTO) 4.65 MIL/uL (4.5-6.0); WHITE BLOOD COUNT (AUTO) 12.4 K/uL (4.3-11.0)
[2017-06-03 07:53] LABS: CALCIUM, SERUM 9.1 mg/dL (8.5-10.1); CREATININE 0.9 mg/dL (0.6-1.3); POTASSIUM 4.6 mmol/L (3.5-5.1)
[2017-06-03] MEDS: BOOST PLUS FOOD-VANILLA 237 ML BOX PO SCH (08:00)
[2017-06-03] MEDS ORDERED: IV D5/ 0.9% NACL 1,000 ML IV PRN (08:00)
[2017-06-03 08:20] VITALS: BP 123/74
[2017-06-03 09:00] VITALS: BP 123/74
[2017-06-03] MEDS: LACTOBACILLUS RHAMNOSUS GG 1 EACH CAP.SPRINK PO SCH (09:00)
[2017-06-03] MEDS: DIVALPROEX SODIUM 125 MG CAP.SPRINK PO SCH (09:00)
[2017-06-03] MEDS: ATENOLOL 25 MG TABLET PO SCH (09:00)
[2017-06-03] MEDS: FOLIC ACID 1 MG TABLET PO SCH (09:00)
[2017-06-03] MEDS: BENAZEPRIL HCL 5 MG TABLET PO SCH (09:00)
[2017-06-03] MEDS: SULFAMETH/TRIMETH 800/160 MG 1 UDTAB TABLET PO SCH (09:00)
[2017-06-03] MEDS ORDERED: FAMOTIDINE/PF INJ 20 MG/2 ML VIAL IV SCH (09:00)
[2017-06-03] MEDS: OLANZAPINE 5 MG/TAB.RAPDIS PO SCH (09:00)
[2017-06-03] MEDS: Z GUARD REMEDY 2 OZ OINT TP SCH (09:44)
--- NOTE | 2017-06-03 09:50 | NUR ---
GPS/RN PATIENT TO BE DISCHARGE TO MEDICAL FLOOR PER LIZ PINTO FOR PROCEDURE, RESECTION OF R UPPER BACK CYST. DR PRICE AWARE OF DISCHARGE, PATIENT IS STILL ON LEGAL HOLD. ALL D/C PAPERWORK COMPLETED, D/C PHOTOS IN CHART, TAKEN BY PREVIOUS SHIFT. NO A.M MEDS WERE ADMINISTERED DUE TO NPO STATUS. ESCORTED TO MED SURGE 2 VIA WHEELCHAIR BY DEFENCE INTELLIGENCE ANALYST AND RN, REPORT GIVEN TO LASHAUN BOWEN.
--- NOTE | 2017-06-03 09:55 | NUR ---
LEONCIO contacted [facility] to inquire about pts acceptance at their facility as he is ready for discharge. LEOCNIO spoke to golf course ranger who stated neither nor Ms. Carpenter had arrived to the facility (they were expected to arrive after 10am). LEONCIO left a message with contact information asking that they call [facility] upon their arrival to discuss pt. LEONCIO will follow up.
[2017-06-03 10:05] LABS: INR 1.1 (0.87-1.13); PROTHROMBIN TIME 11.4 SECS (9.5-12.7)
--- NOTE | 2017-06-03 10:06 | NUR ---
SW received a call back from Harini Carpenter, Boardmarker from [facility] to report that the facility was ready to accept pt. back. SW will follow up and ensure pt is properly and safely discharged.
[2017-06-03] MEDS ORDERED: LORA1TAB82 PO (10:39)
[2017-06-03] MEDS ORDERED: CEPH-569 PO (10:39)
[2017-06-03] MEDS ORDERED: LACT1CAP72 PO (10:39)
[2017-06-03] MEDS ORDERED: OLAN10TA6 PO (10:39)
[2017-06-03] MEDS ORDERED: MAG30ORA PO (10:39)
[2017-06-03] MEDS ORDERED: FAMO20VI5 IV (10:39)
[2017-06-03] MEDS ORDERED: ACET-868 PO (10:39)
[2017-06-03] MEDS ORDERED: SULF1TAB48 PO (10:39)
[2017-06-03] MEDS ORDERED: DIVA500T7 PO ×2 (10:39)
[2017-06-03] MEDS ORDERED: TEMA7.5C PO (10:39)
[2017-06-03] MEDS ORDERED: [UNRECOGNIZED DRUG - CODE] IV (14:22)
--- NOTE | 2017-06-04 11:59 | NUR ---
LEONCIO contacted Technical Designer, Harini Carpenter from [facility] to provide her with an update regarding pts discharge plan however she was unavailable. LEONCIO left a message with Chris from [employer] informing her that pt was still being discharged to their facility and explained the delay (pt is in Med Surg). LEONCIO asked that message be given to Ms. Carpenter. LEONCIO also asked for a call back from Ms. Carpenter once she arrived. LEONCIO will continue to follow up and ensure pt is properly discharged.
--- NOTE | 2017-06-04 12:04 | NUR ---
SW visited Med Surg in order to inquire about pts well being and continue planning for discharge. LEONCIO talked to pts RNDavid who reported pt as calm, tranquil and cooperative. SW coordinated with RN regarding pts discharge. Per RN, pt sill had 5250 hold which needed to be lifted if pt was to discharge from Med Surge. In addition, Pt was still yet to be evaluated my treating medical doctor. Per, RN he would be contacting Dr. Sierra to inquire about the 5250 hold. LEONCIO will continue to follow up to ensure pt is properly discharged. LEONCIO discussed pts case with Case Management who informed SW that if pt is discharged from Med Surg they would be responsible to arrange for transportation. SW will follow up.
== END 2017-06-03 09:45 | disposition short-term general hospital (02) | DRG 885 ==
LOC: ER 18:47 → GPS 05-19 01:20
PROVIDERS: ADMIT Internal Medicine; ATTEND Psychiatry & Neurology Psychiatry
DX: F20.9 Schizophrenia, unspecified (principal); N18.9 Chronic kidney disease, unspecified; E11.22 Type 2 diabetes mellitus with diabetic chronic kidney disease; R56.9 Unspecified convulsions; E87.1 Hypo-osmolality and hyponatremia; L02.413 Cutaneous abscess of right upper limb; D72.829 Elevated white blood cell count, unspecified; J44.9 Chronic obstructive pulmonary disease, unspecified; E78.5 Hyperlipidemia, unspecified; K21.9 Gastro-esophageal reflux disease without esophagitis; I12.9 Hypertensive chronic kidney disease with stage 1 through stage 4 chronic kidney disease, or unspecified chronic kidney disease; F29 Unspecified psychosis not due to a substance or known physiological condition; H54.7 Unspecified visual loss; K02.9 Dental caries, unspecified; Z79.84 Long term (current) use of oral hypoglycemic drugs; L72.0 Epidermal cyst
CPT/HCPCS: 36415; 80048-TC; 80053-TC; 80061-TC; 80076-TC; 80164-TC; 80305; 81000-TC; 82962-TC; 85025-TC; 85610-TC; 85730-TC; 87081-TC; 88305-TC; A4606; A6402; G0480; J2704; J3486; J3490; J7042; Z7610

== ENCOUNTER 2017-06-03 10:25 | Inpatient (IN) | payer MEDICARE, OTHER ==
[~2017-06-03] VITALS: Ht 172.7 cm; Wt 73.5 kg
[~2017-06-03 10:25] MED LIST changes: +ATEN50TA PO; +ATOR10TA PO; +BENA20TA2 PO; -BLOO-367 IN; -CALC-343 PO; -CLOZ100T32 PO; -DOCU-170 PO; +FOLI1TAB16 PO; -GLIP5TAB13 PO; -INSU100V26 IJ; +LACT10SO PO; -LISI5TAB45 PO; -MELA5TAB PO; +QUET300T2 PO; +TRAZ-144 PO; +TRAZ-147 PO
--- NOTE | 2017-06-03 10:30 | NUR ---
ADMISSION NOTES PATIENT ADMITTED FROM GPS OF DX OF RIGHT UPPER BACK INFECTED CYST. PATIENT A/O X 2/3. NO RESPIRATORY DISTRESS, LUNGS SOUND CLEAR DURING AUSCULTATION, UNLABORED, V/S TAKEN BP -110/73, P-79, R-18, T-97.8, O2-97 ROOM AIR. PATIENT HAS NO C/O PAIN AT THIS TIME. SKIN ASSESSMENT DONE, PICTURE TAKE. PATIENT HAS NO BELONGING. 1;1 SITTER NEXT TO THE BED FOR SAFETY. CALL LIGHT WITHIN TO REACH. SAFETY PRECAUTION MAINTAINED ALL THE TIME.
[2017-06-03] MEDS ORDERED: LORA1TAB82 PO (10:39)
[2017-06-03] MEDS ORDERED: TEMA7.5C PO (10:39)
[2017-06-03] MEDS ORDERED: OLAN10TA6 PO (10:39)
[2017-06-03] MEDS ORDERED: LACT1CAP72 PO (10:39)
[2017-06-03] MEDS ORDERED: MAG30ORA PO (10:39)
[2017-06-03] MEDS ORDERED: DIVA500T7 PO ×2 (10:39)
[2017-06-03] MEDS ORDERED: ACET-868 PO (10:39)
[2017-06-03] MEDS ORDERED: SULF1TAB48 PO (10:39)
[2017-06-03] MEDS ORDERED: CEPH-569 PO (10:39)
[2017-06-03] MEDS ORDERED: FAMO20VI5 IV (10:39)
[2017-06-03 11:09] VITALS: BP 110/73
[2017-06-03] MEDS ORDERED: LORAZEPAM INJ 2 MG/ML VIAL IM ONE ×2 (12:00)
--- NOTE | 2017-06-03 12:07 | NUR ---
RN NOTES ADMINISTERED ATIVAN 1 MG /ML IM X1 NOW, FOR YELLING AND SCREAMING, V/S TAKEN BP-110/73, P-79, 1;1 SITTER NEXT TO THE BED FOR SAFETY, [id number] MONITORING.
--- NOTE | 2017-06-03 13:00 | NUR ---
RN NOTES MEDICATION WERE ADMINISTERED FOR ANXIETY EFFECTIVE, NO ACUTE DISTRESS, MRSA OF NARES SWAB TAKEN, 1:1 SITTER NEXT TO BED FOR SAFETY, CONTINUED MONITORING.
[2017-06-03] MEDS ORDERED: [UNRECOGNIZED DRUG - CODE] IV (14:22)
--- NOTE | 2017-06-03 14:35 | NUR ---
RN NOTES PATIENT PHOTOGRAPHIC PLATEMAKER AT THIS TIME FOR SURGERY.
--- NOTE | 2017-06-03 14:45 | NUR ---
RN NOTES PATIENT BACK TO THE BED, BUT HAS NO PROCEDURE DONE YET. CONTINUED MONITORING.
--- NOTE | 2017-06-03 15:20 | NUR ---
RN NOTES PATIENT VERY ANXIOUS, PARANOID, YELLING SCRAMMING, PARANOID, HARD TO FOLLOW DIRECTION. CALLED DR PRICE AND GET NEW ORDER ZYPREXA 5 MG/ML IM X1, ORDER TAKEN AND CARRIED OUT.
--- NOTE | 2017-06-03 15:29 | NUR ---
RN NOTES ADMINISTERED ZYPREXA 5 MG/ML IM X1 PER MD ORDER V/S TAKEN BP-125/81, P-74, . 1:1 SITTER NEXT TO THE BED FOR SAFETY, CALL LIGHT WITHIN TO REACH, CONTINUED MONITORING.
[2017-06-03] MEDS ORDERED: OLANZAPINE 10 MG VIAL IM ONE (15:30)
[2017-06-03 15:58] VITALS: BP 125/81
--- NOTE | 2017-06-03 16:48 | NUR ---
RN NOTES PATIENT TAKEN BACK TO THE SURGERY.
[2017-06-03] MEDS ORDERED: LIDOCAINE 0.5%-EPI 1:200,000 50 ML VIAL ONE (16:57)
[2017-06-03] MEDS ORDERED: BUPIVACAINE 0.5 % PF 150 MG/30 ML VIAL ONE (16:57)
[2017-06-03] MEDS ORDERED: MIDAZOLAM HCL 2 MG/2ML VIAL ONE (17:01)
[2017-06-03] MEDS ORDERED: FENTANYL PF 100MCG/2ML AMPUL ONE (17:01)
[2017-06-03] MEDS ORDERED: CLINDAMYCIN 900 MG/6 ML VIAL ONE (17:04)
[2017-06-03] MEDS ORDERED: LIDOCAINE 1%-EPI 1:100,000 50 ML VIAL IJ ONE (17:06)
--- NOTE | 2017-06-03 18:00 | NUR ---
RN NOTES PATIENT BACK FROM SURGERY, AWAKE, RESPIRATORY DISTRESS, DRESSING ON RIGHT UPPER BACK, INTACT, NO BLEEDING, NO C/O PAIN AT THIS TIME. V/S TAKEN BP-142/81, P-77, R-18, T-97.8, O2-97 ROOM AIR, DR ORDER TAKEN, AND CARRIED OUR RESUME ALL MEDS, REGULAR DIET, CHANGE DRESSING -Saturday06/05/17 WITH ANTIBIOTIC OINTMENT, AND MEPILEX. 1:1 SITTER NEXT TO THE BED, CALL LIGHT WITHIN TO REACH, CONTINUED MONITORING.
--- NOTE | 2017-06-03 18:30 | NUR ---
RN NOTES PATIENT A/O X2/3 EATING AT THIS TIME , NO COMPLAINING OF NAUSEA/ VOMITING, NO C/O PAIN, WANTED BACK TO SLEEP. 1:1 SITTER NEXT TO THE BED, CALL LIGHT WITHIN TO REACH, SAFETY PRECAUTION MAINTAINED ALL THE TIME. CALLED VESTA BINDERY MACHINE FEEDER OFFBEARER, PATIENT GOING TO STAY IN THE MED SURGE FOR MORE OBSERVATION.
--- NOTE | 2017-06-03 19:04 | NUR ---
RN NOTES PATIENT RESTING IN THE BED AT THIS TIME, NO ACUTE DISTRESS, NO RESPIRATORY DISTRESS, 1:1 SITTER NEXT TO THE BED FOR SAFETY, CALL LIGHT WITHIN TO REACH, SAFETY PRECAUTION MAINTAINED ALL THE TIME. ENDORSED ONCOMING NURSE FOR CONTINUATION OF CARE.
--- NOTE | 2017-06-03 19:40 | NUR ---
MS RN INITIAL NOTES PT IS IN BED SLEEPING, EASILY AROUSED. SITTER AT BEDSIDE. BREATHING EVENLY AND LABORED ON RA. NO SIGNS OF SOB OR DISTRESS. BED IS IN LOW AND LOCKED POSITION, BED IS IN LOW AND LOCKED POSITION, CALL LIGHT IS WITHIN REACH. WILL CONTINUE TO MONITOR PT.
[2017-06-03 20:00] VITALS: BP 113/64
[2017-06-03 20:12] VITALS: BP 113/64
[2017-06-03] MEDS ORDERED: TEMAZEPAM 7.5 MG CAPSULE PO PRN (20:30)
[2017-06-03] MEDS ORDERED: LORAZEPAM 1 MG TABLET PO PRN (20:30)
[2017-06-03] MEDS: OLANZAPINE 5 MG/TAB.RAPDIS PO SCH (21:58)
[2017-06-03] MEDS ORDERED: DIVALPROEX SODIUM 125 MG CAP.SPRINK PO SCH (22:00)
--- NOTE | 2017-06-04 06:29 | NUR ---
MS RN CLOSING NOTES PT IS IN BED RESTING WITH SITTER AT BEDSIDE. NO ACUTE CHANGES THROUGHOUT THE SHIFT. 1:1 SITTER AT BEDSIDE. ALL NEEDS WERE ANTICIPATED AND MET. BED IS IN LOW AND LOCKED POSITION, CALL LIGHT WITHIN REACH. WILL ENDORSE TO DAYSHIFT.
--- NOTE | 2017-06-04 07:52 | NUR ---
RN OPENING NOTES RECEIVED PT. PT IS STABLE AND SLEEPING IN BED, FAMILY MEMBER IS BEDSIDE. NO S/S OF SOB OR DISTRESS. PT DOES NOT APPEAR TO BE IN PAIN. WOUND NOTED ON RIGHT UPPER BACK S/P CYST RESECTION ON 06/03. IV ACCESS LOCATED ON LEFT FA, CURRENTLY SL. SAFETY MEASURES IN PLACE, CALL LIGHT WITHIN REACH, WILL CONTINUE TO MONITOR.
[2017-06-04] MEDS: OLANZAPINE 5 MG/TAB.RAPDIS PO SCH (08:49)
[2017-06-04] MEDS ORDERED: DIVALPROEX SODIUM 125 MG CAP.SPRINK PO SCH (09:00)
--- NOTE | 2017-06-04 15:52 | NUR ---
DISCHARGE NOTE PT DISCHARGED TO [facility]. A/OX2, PT IS CONFUSED AND HAS SOME COGNITIVE DEFECITS. PT IS ON RA, O2 SAT WNL. PT BELONGINGS FORM & DISCHARGE INSTRUCTIONS SIGNED AND COPIED. IV ACCESS LOCATED ON RIGHT AC 20G, SL, REMOVED PRIOR TO DISCHARGE. PT TO BE DISCHARGED TO [facility]. VSS, NO S/S OF RESPIRATORY DISTRESS OR SOB. PT HAS NO C/O PAIN AT THIS TIME. CALLED AND GAVE REPORT TO DAJUAN AND PATIENT. PT VERBALIZES UNDERSTANDING OF TX ORDERS. SAFETY MEASURES IN PLACE, CALL LIGHT WITHIN, WILL CONTINUE TO MONITOR.
== END 2017-06-04 14:45 | DRG 607 ==
LOC: MEDSG2 10:25
PROVIDERS: ADMIT Nurse Practitioner Acute Care; ATTEND Nurse Practitioner Acute Care
PROC: 0HB6XZZ Excision of Back Skin, External Approach (ICD-10-PCS; principal; 2017-06-03)
DX: L72.3 Sebaceous cyst (principal); F03.90 Unspecified dementia, unspecified severity, without behavioral disturbance, psychotic disturbance, mood disturbance, and anxiety; E87.1 Hypo-osmolality and hyponatremia; F20.9 Schizophrenia, unspecified; D72.829 Elevated white blood cell count, unspecified; E11.9 Type 2 diabetes mellitus without complications; E78.5 Hyperlipidemia, unspecified; I10 Essential (primary) hypertension; J44.9 Chronic obstructive pulmonary disease, unspecified; K02.9 Dental caries, unspecified; K21.9 Gastro-esophageal reflux disease without esophagitis; H54.7 Unspecified visual loss; F29 Unspecified psychosis not due to a substance or known physiological condition
CPT/HCPCS: 87081-TC; J2060; J2250; J3010; J3490; Z7610

== ENCOUNTER 2017-06-10 20:20 | Inpatient (IN) | payer MEDICARE, OTHER ==
[~2017-06-10] VITALS: Ht 167.6 cm; Wt 53.5 kg
[~2017-06-10 20:20] MED LIST changes: +ACET-868 PO; +CEPH-569 PO; -DIVA500T2 PO; +DIVA500T7 PO; +FAMO20VI5 IV; +LACT1CAP72 PO; +LORA-259 PO; -LORA1TAB82 PO; +MAG30ORA PO; +OLAN10TA6 PO; -QUET300T2 PO; +SULF1TAB48 PO; +TEMA7.5C PO; -TRAZ-144 PO; -TRAZ-147 PO; +[UNRECOGNIZED DRUG - CODE] IV
--- NOTE | 2017-06-10 20:42 | NUR ---
pt bib via mago from [facility] for psych eval. awaiting to be seen by
[2017-06-10 20:47] LABS: BASOPHILS # (AUTO) 0.1 /CMM (0.0-0.2); BASOPHILS % (AUTO) 0.6 % (0.0-2.0); EOSINOPHILS # (AUTO) 0.1 /CMM (0.0-0.7); EOSINOPHILS % (AUTO) 1.3 % (0.0-6.0); HEMATOCRIT 45 % (39-51); HEMOGLOBIN 14.6 g/dL (13.5-17.5); LYMPHOCYTES # (AUTO) 3.1 /CMM (0.8-4.8); LYMPHOCYTES % (AUTO) 28.6 % (20.0-44.0); MEAN CORPUSCULAR HEMOGLOBIN 32 PG (26.0-33.0); MEAN CORPUSCULAR HGB CONC 33 g/dl (31.0-36.0); MEAN CORPUSCULAR VOLUME 96 fL (80-96); MONOCYTES # (AUTO) 1.1 /CMM (0.1-1.30); MONOCYTES % (AUTO) 9.8 % (2.0-12.0); NEUTROPHILS # (AUTO) 6.4 /CMM (1.8-8.9); NEUTROPHILS % (AUTO) 59.7 % (43.0-81.0); PLATELET COUNT (AUTO) 285 /CMM (150-450); RDW COEFFICIENT OF VARIATION 12.7 (11.5-15.0); RED BLOOD CELL COUNT(AUTO) 4.63 MIL/uL (4.5-6.0); WHITE BLOOD COUNT (AUTO) 10.8 K/uL (4.3-11.0)
--- NOTE | 2017-06-10 20:52 | NUR ---
pt is confused at this time. patient is trying to get out of bed, removing BP and Pulse ox. per PLANNING OFFICIAL Degr[place] place patient on 2 soft restraints on bilat upper extremities. PMS distal to restraint WNL. patient is on engine monitor. will continue to monitior
[2017-06-10 20:58] LABS: CALCIUM, SERUM 9.4 mg/dL (8.5-10.1); CARBON DIOXIDE 27 mmol/L (21-32); CHLORIDE 106 mmol/L (98-107); CREATININE 0.8 mg/dL (0.6-1.3); GLUCOSE 113 mg/dL (74-106); POTASSIUM 4.8 mmol/L (3.5-5.1); SODIUM SERUM 140 mmol/L (136-145); UREA NITROGEN, BLOOD 13 mg/dL (7-18)
[2017-06-10 21:04] LABS: ALANINE AMINOTRANSFERASE 18 U/L (12-78); ALBUMIN 3.4 g/dL (3.4-5.0); ALCOHOL, BLOOD < 3 mg/dL (0-0); ALKALINE PHOSPHATASE 54 U/L (46-116); ASPARTATE AMINOTRANSFERASE 9 U/L (15-37); BILIRUBIN,DIRECT 0.1 mg/dL (0.0-0.2); BILIRUBIN,TOTAL 0.2 mg/dL (0.2-1.0); TOTAL PROTEIN, SERUM 7.2 g/dL (6.4-8.2)
[2017-06-10 21:14] LABS: ACETAMINOPHEN 0 ug/ml (10-30); SALICYLATE 1.1 mg/dL (2.8-20.0)
--- NOTE | 2017-06-10 21:42 | NUR ---
in and out nathan done as ordered by LIZ Mcelroy
--- NOTE | 2017-06-10 22:16 | NUR ---
patient is now resting in er bed, no distress noted. bilat upper estremity restraints removed. PMS bilat distal extremities WNL
[2017-06-10 23:09] LABS: APPEARANCE,URINE SL CLOUDY (CLEAR); BILIRUBIN,URINE NEGATIVE (NEGATIVE); BLOOD, URINE NEGATIVE Ery/uL (NEGATIVE); COLOR,URINE YELLOW (YELLOW); KETONES,URINE TRACE (NEGATIVE); LEUKOCYTE ESTERASE ,URINE NEGATIVE (NEGATIVE); NITRITE, URINE NEGATIVE (NEGATIVE); PH,URINE 7.5 (5.0-8.0); PROTEIN,URINE NEGATIVE (NEGATIVE); UGLUCOSE NEGATIVE (NEGATIVE); UROBILINOGEN,URINE 0.2 EU/dL (0.2)
--- NOTE | 2017-06-10 23:15 | NUR ---
Lin WILKS took report for pt
--- NOTE | 2017-06-10 23:16 | NUR ---
CALLED ART SHIRT CLOSER.
[2017-06-10 23:17] LABS: RBC,URINE NONE SEEN /HPF (0-2); SQUAMOUS EPITHELIAL CELL,UR Few /HPF (None Seen)
[2017-06-10 23:18] LABS: BACTERIA,URINE Rare /HPF (None Seen)
--- NOTE | 2017-06-11 01:27 | NUR ---
Transported pt to [facility] bed with EMT without incident
[2017-06-11] MEDS ORDERED: ACETAMINOPHEN 325 MG TABLET PO PRN (01:30)
[2017-06-11] MEDS ORDERED: MAGNESIUM HYDROXIDE 30 ML UDC PO PRN (01:30)
[2017-06-11] MEDS ORDERED: MAG HYDROX/AL HYDROX/SIMETH 30 ML UDC PO PRN (01:30)
[2017-06-11 01:35] VITALS: BP 99/63
--- NOTE | 2017-06-11 02:00 | NUR ---
GPS EDI MANAGER NOTES: ADMITTED A 51YO MALE FROM [facility] ON 5150 HOLD FOR GRAVE DISABILITY. PER HOLD THE PATIENT WAS AGGRESSIVE, SCREAMING BANGING HEAD AGAINST DOOR, REFUSING CARE. PATIENT IS ALSO CONFUSED, DISORGANIZE, STRIKING OUT AT STAFF AND RESIDENTS FROM PREVIOUS FACILITY. PATIENT IS UNDER THE CARE OF DR. MEDRANO AND ADRIENNE,LIZ. PATIENT WAS ASLEEP HE WAS WHEELED IN THE GURNEY BY [facility] STAFF INTO THE UNIT. PATIENT CHANGED INTO PATIENT'S GOWN. UPON FACE TO FACE EVALUATION PATIENT APPEARS ALERT AND ORIENTED X1, ORIENTED TO NAME ONLY. HE IS NOTED TO BE DISHEVELED, UNKEMPT DISORGANIZED, LABILE, GUARDED AND UNPREDICTABLE. REALITY ORIENTATION DONE.SKIN AND BODY ASSESSMENT DONE. BELONGINGS AND CONTRABAND WERE CHECKED. MEDICATION RECONCILIATION TO BE FOLLOWED UP IN THE MORNING. SAFETY AND FALL PRECAUTIONS OBSERVED. Q15 MIN CHECK INITIATED, CARE PLAN INITIATED. WILL MONITOR PATIENT FOR MOOD,,SAFETY AND BEHAVIOR.
[2017-06-11 08:00] VITALS: BP 102/65
[2017-06-11 08:18] LABS: CREATININE 0.7 mg/dL (0.6-1.3)
[2017-06-11] MEDS ORDERED: FAMO-131 PO (09:01)
[2017-06-11] MEDS ORDERED: BENA5TAB2 PO (09:01)
--- NOTE | 2017-06-11 11:00 | NUR ---
WOUND CARE CONSULT: PT PRESENTS WITH INCONTINENCE AND HEALED SCAR TO RT SHOULDER BLADE AREA. RECOMMENDATIONS MADE FOR SKIN PROTECTION. DISCUSSED WITH NURSING STAFF. WILL SEE PRN. IN AGREEMENT WITH PLAN OF CARE.
[2017-06-11] MEDS ORDERED: Z GUARD REMEDY 2 OZ OINT TP PRN (11:30)
[2017-06-11] MEDS: DIVALPROEX SODIUM 500 MG TABLET.DR PO SCH ×2 (13:27→21:16)
[2017-06-11] MEDS: OLANZAPINE 5 MG/TAB.RAPDIS PO SCH ×2 (13:27→16:20)
[2017-06-11] MEDS: Z GUARD REMEDY 2 OZ OINT TP SCH ×2 (13:28→13:29)
[2017-06-11] MEDS ORDERED: ALBUTEROL FS 2.5 MG/3 ML VIAL.NEB NEB PRN (13:30)
--- NOTE | 2017-06-11 14:27 | NUR ---
Assessment Note: SW attests to the accuracy of the psychosocial assessment conducted for same patient on May 21, 2017. There have been no changes to patient's information. When SW went to speak with patient, patient acknowledged SW's presence and responded to his name. However, patient refused to talk with SW and huddled up in his blankets to avoid interaction with SW. SW to make a secondary attempt to speak with patient regarding his mental status and discharge plan.
[2017-06-11 16:05] VITALS: BP 146/97
[2017-06-11] MEDS: LACTOBACILLUS RHAMNOSUS GG 1 EACH CAP.SPRINK PO SCH (16:20)
[2017-06-11] MEDS: LACTULOSE 10 G/15 ML UDC (PYXIS) PO SCH (16:20)
[2017-06-11 19:56] VITALS: BP 135/89
[2017-06-11] MEDS: ATORVASTATIN 10 MG TABLET PO SCH (21:16)
[2017-06-11] MEDS ORDERED: DIVALPROEX SODIUM 500 MG TABLET.DR PO SCH (22:00)
[2017-06-12 07:57] LABS: CHOLESTEROL 91 mg/dL (<200); HDL CHOLESTEROL 31 mg/dL (40-60); LDL 44 mg/dL (0-99); TRIGLYCERIDES 134 mg/dL (30-150)
[2017-06-12 08:00] VITALS: BP 120/72
[2017-06-12] MEDS ORDERED: ATENOLOL 50 MG TABLET PO SCH (09:00)
[2017-06-12] MEDS ORDERED: DIVALPROEX SODIUM 500 MG TABLET.DR PO SCH (09:00)
[2017-06-12] MEDS: LACTULOSE 10 G/15 ML UDC (PYXIS) PO SCH ×3 (09:07→16:19)
[2017-06-12] MEDS: OLANZAPINE 5 MG/TAB.RAPDIS PO SCH ×2 (09:07→16:19)
[2017-06-12] MEDS: LACTOBACILLUS RHAMNOSUS GG 1 EACH CAP.SPRINK PO SCH ×2 (09:07→16:20)
[2017-06-12] MEDS: FAMOTIDINE (20 MG) 20 MG TABLET PO SCH (09:07)
[2017-06-12] MEDS: BENAZEPRIL HCL 5 MG TABLET PO SCH (09:07)
[2017-06-12] MEDS: DIVALPROEX SODIUM 500 MG TABLET.DR PO SCH ×2 (09:07→21:29)
[2017-06-12] MEDS: FOLIC ACID 1 MG TABLET PO SCH (09:07)
[2017-06-12] MEDS: Z GUARD REMEDY 2 OZ OINT TP SCH (09:36)
--- NOTE | 2017-06-12 13:39 | NUR ---
Discharge Planning: LEONCIO called SNF [facility] located at [address] [place] [id number], / fax number [phone] and spoke with Mauro in admissions. Mauro confirmed that patient will be able to return to the facility upon stabilization, as there was a written agreement.
[2017-06-12 16:00] VITALS: BP 139/95
[2017-06-12] MEDS ORDERED: MUPIROCIN OINT 2% 22 GM TUBE SCH (16:30)
[2017-06-12] MEDS: BACITRACIN ZINC OINT (15 GM) 15 GM TUBE TP SCH (18:21)
[2017-06-12 20:02] VITALS: BP 120/83
[2017-06-12] MEDS: ATORVASTATIN 10 MG TABLET PO SCH (21:28)
[2017-06-12] MEDS: ZOLPIDEM TARTRATE 10 MG TABLET PO PRN (21:51)
[2017-06-13] MEDS: DIVALPROEX SODIUM 500 MG TABLET.DR PO SCH ×2 (08:22→22:30)
[2017-06-13] MEDS: FAMOTIDINE (20 MG) 20 MG TABLET PO SCH (08:23)
[2017-06-13] MEDS: BENAZEPRIL HCL 5 MG TABLET PO SCH (08:23)
[2017-06-13] MEDS: OLANZAPINE 5 MG/TAB.RAPDIS PO SCH ×2 (08:23→16:10)
[2017-06-13] MEDS: LACTOBACILLUS RHAMNOSUS GG 1 EACH CAP.SPRINK PO SCH ×2 (08:23→16:10)
[2017-06-13] MEDS: LACTULOSE 10 G/15 ML UDC (PYXIS) PO SCH ×3 (08:23→16:10)
[2017-06-13] MEDS: FOLIC ACID 1 MG TABLET PO SCH (08:23)
[2017-06-13] MEDS: ATENOLOL 25 MG TABLET PO SCH (08:23)
[2017-06-13] MEDS: BACITRACIN ZINC OINT (15 GM) 15 GM TUBE TP SCH ×2 (08:24→16:10)
[2017-06-13 08:33] VITALS: BP 118/60
[2017-06-13] MEDS: Z GUARD REMEDY 2 OZ OINT TP SCH (08:43)
[2017-06-13] MEDS: LORAZEPAM 0.5 MG TABLET PO PRN (14:52)
--- NOTE | 2017-06-13 14:56 | NUR ---
GPS RN NOTE; PATIENT YELLING AND SCREAMING ATIVAN 0.5 MG PO PRN GIVEN PER ORDER WILL CONTINUE MONITORING FOR SAFETY AND BEHAVIOR Q 15 MIN
[2017-06-13 15:28] VITALS: BP 120/76
--- NOTE | 2017-06-13 19:36 | NUR ---
GPS/RN NOTE: PATIENT ASLEEP, NO RESPONSE WHEN CALLED. NO APPARENT DISTRESS NOTED, RESPIRATION EVEN, BREATHING NON-LABORED, EQUAL RISE AND FALL OF THE CHEST. WILL MONITOR FOR SAFETY AND PRECAUTION.
[2017-06-13 20:00] VITALS: BP 116/53
[2017-06-13] MEDS: ATORVASTATIN 10 MG TABLET PO SCH (22:30)
[2017-06-14 08:00] VITALS: BP 109/61
[2017-06-14] MEDS: FAMOTIDINE (20 MG) 20 MG TABLET PO SCH (08:24)
[2017-06-14] MEDS: BENAZEPRIL HCL 5 MG TABLET PO SCH (09:00)
[2017-06-14] MEDS: ATENOLOL 25 MG TABLET PO SCH (09:00)
[2017-06-14] MEDS: LACTOBACILLUS RHAMNOSUS GG 1 EACH CAP.SPRINK PO SCH ×2 (09:07→16:42)
[2017-06-14] MEDS: LACTULOSE 10 G/15 ML UDC (PYXIS) PO SCH ×3 (09:07→16:58)
[2017-06-14] MEDS: OLANZAPINE 5 MG/TAB.RAPDIS PO SCH ×2 (09:08→16:42)
[2017-06-14] MEDS: FOLIC ACID 1 MG TABLET PO SCH (09:08)
[2017-06-14] MEDS: DIVALPROEX SODIUM 500 MG TABLET.DR PO SCH ×2 (09:09→22:42)
[2017-06-14] MEDS: Z GUARD REMEDY 2 OZ OINT TP SCH (09:11)
[2017-06-14] MEDS: BACITRACIN ZINC OINT (15 GM) 15 GM TUBE TP SCH ×2 (09:13→16:57)
--- NOTE | 2017-06-14 12:06 | NUR ---
Discharge Planning: LEONCIO faxed updated inquiry / progress notes to [facility] located at [address] [place] [phone], / fax number [phone]
[2017-06-14 16:00] VITALS: BP 115/78
[2017-06-14] MEDS: LORAZEPAM 0.5 MG TABLET PO PRN (16:42)
[2017-06-14 20:00] VITALS: BP 106/66
[2017-06-14] MEDS: ATORVASTATIN 10 MG TABLET PO SCH (22:42)
[2017-06-14] MEDS: ZOLPIDEM TARTRATE 10 MG TABLET PO PRN (22:49)
[2017-06-15 08:00] VITALS: BP 125/56
[2017-06-15] MEDS: LACTULOSE 10 G/15 ML UDC (PYXIS) PO SCH ×3 (08:51→16:49)
[2017-06-15] MEDS: FOLIC ACID 1 MG TABLET PO SCH (08:51)
[2017-06-15] MEDS: OLANZAPINE 5 MG/TAB.RAPDIS PO SCH ×2 (08:51→16:48)
[2017-06-15] MEDS: LACTOBACILLUS RHAMNOSUS GG 1 EACH CAP.SPRINK PO SCH ×2 (08:51→16:49)
[2017-06-15] MEDS: BACITRACIN ZINC OINT (15 GM) 15 GM TUBE TP SCH ×2 (08:51→16:48)
[2017-06-15] MEDS: DIVALPROEX SODIUM 500 MG TABLET.DR PO SCH ×2 (08:52→21:13)
[2017-06-15] MEDS: LORAZEPAM 0.5 MG TABLET PO PRN (08:52)
[2017-06-15] MEDS: Z GUARD REMEDY 2 OZ OINT TP SCH (08:53)
[2017-06-15] MEDS: BENAZEPRIL HCL 5 MG TABLET PO SCH (08:53)
[2017-06-15] MEDS: ATENOLOL 25 MG TABLET PO SCH (08:54)
[2017-06-15] MEDS: FAMOTIDINE (20 MG) 20 MG TABLET PO SCH (08:55)
--- NOTE | 2017-06-15 11:58 | NUR ---
PT. IS HIGHLY AGITATED, SCREAMING AND YELLING LOUDLY AND BANGING THE TABLE. DR. REBOLLEDO ORDERED ZYPREXA 10 MG IM.
[2017-06-15] MEDS ORDERED: OLANZAPINE 10 MG VIAL IM ONE (12:00)
--- NOTE | 2017-06-15 14:25 | NUR ---
CALLED UNRULY WISE AT [phone] AND IT'S A WRONG NUMBER.
[2017-06-15 16:00] VITALS: BP 101/70
[2017-06-15 20:00] VITALS: BP 135/77
[2017-06-15] MEDS: ATORVASTATIN 10 MG TABLET PO SCH (21:13)
[2017-06-15] MEDS: ZOLPIDEM TARTRATE 10 MG TABLET PO PRN (21:57)
[2017-06-16 08:00] VITALS: BP 113/60
[2017-06-16] MEDS: FOLIC ACID 1 MG TABLET PO SCH (08:08)
[2017-06-16] MEDS: FAMOTIDINE (20 MG) 20 MG TABLET PO SCH (08:08)
[2017-06-16] MEDS: LACTOBACILLUS RHAMNOSUS GG 1 EACH CAP.SPRINK PO SCH ×2 (08:08→16:43)
[2017-06-16] MEDS: DIVALPROEX SODIUM 500 MG TABLET.DR PO SCH ×2 (08:08→21:18)
[2017-06-16] MEDS: OLANZAPINE 5 MG/TAB.RAPDIS PO SCH ×2 (08:08→16:43)
[2017-06-16] MEDS: LACTULOSE 10 G/15 ML UDC (PYXIS) PO SCH ×3 (08:08→16:43)
[2017-06-16] MEDS: ATENOLOL 25 MG TABLET PO SCH (08:09)
[2017-06-16] MEDS: BENAZEPRIL HCL 5 MG TABLET PO SCH (08:10)
[2017-06-16] MEDS: BACITRACIN ZINC OINT (15 GM) 15 GM TUBE TP SCH ×2 (08:11→16:44)
[2017-06-16] MEDS: Z GUARD REMEDY 2 OZ OINT TP SCH (08:37)
[2017-06-16 15:57] VITALS: BP 103/56
[2017-06-16 20:07] VITALS: BP 131/74
[2017-06-16] MEDS: ZOLPIDEM TARTRATE 10 MG TABLET PO PRN (21:18)
[2017-06-16] MEDS: ATORVASTATIN 10 MG TABLET PO SCH (21:18)
[2017-06-17 08:21] VITALS: BP 107/60
[2017-06-17] MEDS: DIVALPROEX SODIUM 500 MG TABLET.DR PO SCH ×2 (08:29→21:49)
[2017-06-17] MEDS: LACTOBACILLUS RHAMNOSUS GG 1 EACH CAP.SPRINK PO SCH ×2 (08:29→17:05)
[2017-06-17] MEDS: FOLIC ACID 1 MG TABLET PO SCH (08:29)
[2017-06-17] MEDS: LACTULOSE 10 G/15 ML UDC (PYXIS) PO SCH ×3 (08:29→17:05)
[2017-06-17] MEDS: BENAZEPRIL HCL 5 MG TABLET PO SCH (08:30)
[2017-06-17] MEDS: OLANZAPINE 5 MG/TAB.RAPDIS PO SCH ×2 (08:30→17:05)
[2017-06-17] MEDS: ATENOLOL 25 MG TABLET PO SCH (08:30)
[2017-06-17] MEDS: FAMOTIDINE (20 MG) 20 MG TABLET PO SCH (08:31)
[2017-06-17] MEDS: BACITRACIN ZINC OINT (15 GM) 15 GM TUBE TP SCH ×2 (08:36→17:05)
[2017-06-17] MEDS: Z GUARD REMEDY 2 OZ OINT TP SCH (08:38)
[2017-06-17] MEDS ORDERED: OLANZAPINE 10 MG VIAL IM STA (09:18)
--- NOTE | 2017-06-17 10:00 | NUR ---
[id number]: PT IS DISRUPTIVE, AGGRESSIVE, UNPREDICTABLE, AGITATED, NON-REDIRECTABLE. PT UNABLE TO FOLLOW DIRECTIONS. PT IS NON-COMPLAINT. PROVIDE LEAST RESTRICTIVE MEASURES, SUCH ESCORT PT TO ROOM, DIM LIGHTS, DECREASE EXTERNAL STIMULI. NOTIFIED DR. REBOLLEDO ABOUT PT'S BEHAVIOR. DR. REBOLLEDO ORDERED ZYPREXA 5 MG IM. WILL CONTINUE TO MONITOR FOR EFFECTIVENESS OF MEDICATION
[2017-06-17 15:55] VITALS: BP 127/70
[2017-06-17 19:44] VITALS: BP 123/64
[2017-06-17] MEDS: ATORVASTATIN 10 MG TABLET PO SCH (21:48)
[2017-06-17] MEDS: QUETIAPINE FUMARATE 100 MG TABLET PO SCH (21:49)
[2017-06-18 08:14] VITALS: BP 119/70
[2017-06-18] MEDS: BACITRACIN ZINC OINT (15 GM) 15 GM TUBE TP SCH ×2 (09:00→16:23)
[2017-06-18] MEDS: Z GUARD REMEDY 2 OZ OINT TP SCH (09:00)
[2017-06-18] MEDS: DIVALPROEX SODIUM 500 MG TABLET.DR PO SCH ×2 (10:11→21:16)
[2017-06-18] MEDS: FOLIC ACID 1 MG TABLET PO SCH (10:11)
[2017-06-18] MEDS: OLANZAPINE 5 MG/TAB.RAPDIS PO SCH ×2 (10:11→16:21)
[2017-06-18] MEDS: BENAZEPRIL HCL 5 MG TABLET PO SCH (10:11)
[2017-06-18] MEDS: FAMOTIDINE (20 MG) 20 MG TABLET PO SCH (10:11)
[2017-06-18] MEDS: ATENOLOL 25 MG TABLET PO SCH (10:12)
[2017-06-18] MEDS: LACTOBACILLUS RHAMNOSUS GG 1 EACH CAP.SPRINK PO SCH ×2 (10:12→16:20)
[2017-06-18] MEDS: LACTULOSE 10 G/15 ML UDC (PYXIS) PO SCH ×3 (10:14→16:23)
--- NOTE | 2017-06-18 10:52 | NUR ---
Discharge Planning: LEONCIO informed Mauro, admissions counselor at [facility] located at [address] [place] [id number], / fax number [phone] that patient was set to discharge tomorrow. Mauro stated that the facility will accommodate the patient. LEONCIO faxed updated progress notes to facility.
--- NOTE | 2017-06-18 12:30 | NUR ---
RN NOTES PT IS DISRUPTIVE, AGGRESSIVE, UNPREDICTABLE, AGITATED, NON-REDIRECTABLE. PT UNABLE TO FOLLOW DIRECTIONS. PT IS NON-COMPLAINT. PROVIDE LEAST RESTRICTIVE MEASURES, SUCH ESCORT PT TO ROOM, DIM LIGHTS, DECREASE EXTERNAL STIMULI. PRN ATIVAN GIVEN ORDERED. SAFETY ENSURED WITH SITTER AT BEDSIDE
[2017-06-18] MEDS: LORAZEPAM 0.5 MG TABLET PO PRN (12:32)
[2017-06-18 15:50] VITALS: BP 100/69
[2017-06-18 21:01] VITALS: BP 105/55
[2017-06-18] MEDS: ATORVASTATIN 10 MG TABLET PO SCH (21:16)
[2017-06-18] MEDS: QUETIAPINE FUMARATE 100 MG TABLET PO SCH (21:16)
[2017-06-19 08:00] VITALS: BP 109/57
[2017-06-19] MEDS: FOLIC ACID 1 MG TABLET PO SCH (08:13)
[2017-06-19] MEDS: DIVALPROEX SODIUM 500 MG TABLET.DR PO SCH (08:13)
[2017-06-19] MEDS: FAMOTIDINE (20 MG) 20 MG TABLET PO SCH (08:13)
[2017-06-19] MEDS: LACTULOSE 10 G/15 ML UDC (PYXIS) PO SCH ×2 (08:13→12:48)
[2017-06-19] MEDS: BENAZEPRIL HCL 5 MG TABLET PO SCH (08:14)
[2017-06-19 08:15] VITALS: BP 109/57
[2017-06-19] MEDS: LACTOBACILLUS RHAMNOSUS GG 1 EACH CAP.SPRINK PO SCH (08:15)
[2017-06-19] MEDS: OLANZAPINE 5 MG/TAB.RAPDIS PO SCH (08:15)
[2017-06-19] MEDS: ATENOLOL 25 MG TABLET PO SCH (08:15)
[2017-06-19] MEDS: Z GUARD REMEDY 2 OZ OINT TP SCH (08:20)
[2017-06-19] MEDS: BACITRACIN ZINC OINT (15 GM) 15 GM TUBE TP SCH (09:03)
--- NOTE | 2017-06-19 09:39 | NUR ---
Discharge Planning: Patient will be discharged to [facility], [address] [facility], [id number]; and fax # via ambulance transportation arranged by social work instructor through [employer], trip #[id number]. The transportation is scheduled for 12:30pm. At the facility, patient will be under the continuing care of his psychiatrist, Dr. Smith [address] [facility] [address] [place] [address] [phone]. Patient will also be seen by his market risk analyst, Dr. Moreno [address] [facility] [address], [place] [address] [phone].
[2017-06-19] MEDS: LORAZEPAM 0.5 MG TABLET PO PRN (11:30)
--- NOTE | 2017-06-19 12:48 | NUR ---
pt discharge today by dr. velazquez. 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 pt going to [facility], [address] [place] [address] . pt is alert oriented x 1 and ambulatory. vital sign stable. no acute distress noted. denies s/i and/or h/i at time of discharge. exit care completed. no belongings. pictures taken. left in stable condition.
== END 2017-06-19 13:00 | DRG 885 ==
LOC: ER 20:21 → GPS 06-11 01:16
PROVIDERS: ADMIT Psychiatry & Neurology Psychiatry; ATTEND Nurse Practitioner Acute Care
DX: F20.0 Paranoid schizophrenia (principal); E11.9 Type 2 diabetes mellitus without complications; E78.5 Hyperlipidemia, unspecified; G40.909 Epilepsy, unspecified, not intractable, without status epilepticus; I10 Essential (primary) hypertension; J44.9 Chronic obstructive pulmonary disease, unspecified; K21.9 Gastro-esophageal reflux disease without esophagitis; Z88.0 Allergy status to penicillin; Z73.6 Limitation of activities due to disability; L98.8 Other specified disorders of the skin and subcutaneous tissue
CPT/HCPCS: 36415; 80048-TC; 80061-TC; 80076-TC; 80164-TC; 80305; 81000-TC; 82565-TC; 85025-TC; 87081-TC; 97116-TC; 97530-TC; A4606; A6402; G0480; J3490; Z7610